=== PATIENT | female | born 1945 | race Asian ===

== ENCOUNTER 2017-12-08 22:12 | Observation (INO) | payer OTHER ==
[2017-12-08 22:25] VITALS: BMI 30.1
[2017-12-08] MEDS ORDERED: ASPIRIN 81 MG CHEWABLE TABLETS PO ONE (22:27)
[2017-12-08] MEDS ORDERED: MAG HYDROX/AL HYDROX/SIMETH 30 ML UNIT-DOSE CUP PO ONE (22:36)
[2017-12-08] MEDS ORDERED: ASPIRIN 81 MG CHEWABLE TABLETS ONE (22:53)
[2017-12-08] MEDS ORDERED: MAG HYDROX/AL HYDROX/SIMETH 30 ML UNIT-DOSE CUP ONE (22:53)
[2017-12-08 23:10] LABS: BASO % 0.6 % (0-2.0); EOS % 3.7 % (0-4.5); HEMOGLOBIN 11.6 GM/dL (10.7-15.3); LYMPH % 16.9 % (8-40); MCH 28.4 pg (25.7-33.7); MCHC 33.3 g/dl (32.0-36.0); MEAN CELL VOLUME 85.4 fl (80-96); MEAN PLT VOLUME 8.5 fl (7.5-11.1); MONO % 5.8 % (3.8-10.2); PLATELET COUNT 175 K/MM3 (134-434); RBC 4.09 M/mm3 (3.60-5.2); RDW 13.4 % (11.6-15.6)
[2017-12-08 23:14] LABS: INR 0.93 (0.82-1.09); PROTHROMBIN TIME (PATIENT) 10.5 SEC (9.98-11.88)
--- NOTE | 2017-12-08 23:38 | PDOC ---
History of Present Illness - General History Source: Patient, Family Exam Limitations: No Limitations <Lynda Tse - Last Filed: 12/09/17 00:24> <Cindy Garcias - Last Filed: 12/09/17 02:22> - General Chief Complaint: Chest Pain Stated Complaint: CHEST PAIN Time Seen by Provider: 12/08/17 22:25 - History of Present Illness Initial Comments: 12/08/17 23:39 The patient is a 72 year old female with a significant past medical history of HTN, HLD, DM and renal failure who presents to the ED with chest discomfort and lightheadedness since earlier today. The patient reports a gradual onset of generalized abdominal discomfort around 6:30 pm earlier today. She states her abdominal discomfort progressively developed into midsternal chest discomfort. She describes her chest discomfort as a burning like sensation. Patient reports taking pepcid for her chest discomfort with relief of symptoms. Patient also reports an episode of constipation around 9:00 pm tonight. She states she was straining on the toilet when she had a sudden onset of lightheadedness and a near-syncopal episode. Denies fall or injury. As per daughter, the patients blood sugar was 347 after her near-syncopal episode. Denies fever or chills. Denies shortness of breath or coughing. Denies nausea, vomiting, or diarrhea. Denies any other symptoms. PCP: Dr. Mcarthur Wallpaper Printer: Dr. Diana Monahan (Lynda Tse) Past History <Lynda Tse - Last Filed: 12/09/17 00:24> - Past Medical History COPD: No GI Disorders: Yes HTN: Yes Hypercholesterolemia: Yes - Suicide/Smoking/Psychosocial Hx Smoking History: Never smoked <Cindy Garcias - Last Filed: 12/09/17 02:22> - Past Medical History Allergies/Adverse Reactions: Allergies Allergy/AdvReac Type Severity Reaction Status Date / Time No Known Allergies Allergy Verified 12/08/17 22:24 Home Medications: Ambulatory Orders Aspirin 81 mg PO DAILY 12/08/17 Atorvastatin Ca [Lipitor] 10 mg PO HS 12/08/17 Calcium Carbonate/Vitamin D3 [Oyster Shell 500-Vit D3 200 Tb] 1 each PO DAILY Famotidine [Pepcid] 20 mg PO DAILY 12/08/17 Furosemide [Lasix] 20 mg PO DAILY 12/08/17 Glipizide [Glipizide ER] 5 mg PO DAILY 12/08/17 Insulin Glargine,Hum.rec.anlog [Lantus Solostar PEN (NF)] 25 units SQ HS Metformin HCl [Glucophage -] 500 mg PO DAILY 12/08/17 Metoprolol Succinate [Toprol Xl -] 50 mg PO DAILY 12/08/17 Telmisartan/Hydrochlorothiazid [Telmisartan-Hctz 80-25 mg Tab] 1 each PO DAILY 12/08/17 Review of Systems - Review of Systems Able to Perform ROS?: Yes All Other Systems: Reviewed and Negative <Lynda Tse - Last Filed: 12/09/17 00:24> <Cindy Garcias - Last Filed: 12/09/17 02:22> - Review of Systems Comments:: 12/08/17 23:40 CONSTITUTIONAL: Absent: fever, chills, diaphoresis, generalized weakness, malaise, loss of appetite HEENT: Absent: rhinorrhea, nasal congestion, throat pain, throat swelling, difficulty swallowing, mouth swelling, ear pain, eye pain, visual Changes CARDIOVASCULAR: + chest discomfort Absent: syncope, palpitations, irregular heart rate, lightheadedness, peripheral edema RESPIRATORY: Absent: cough, shortness of breath, dyspnea with exertion, orthopnea, wheezing, stridor, hemoptysis GASTROINTESTINAL: + abdominal discomfort, constipation Absent: abdominal distension, nausea, vomiting, diarrhea, melena, hematochezia GENITOURINARY: Absent: dysuria, frequency, urgency, hesitancy, hematuria, flank pain, genital pain MUSCULOSKELETAL: Absent: myalgia, arthralgia, joint swelling SKIN: Absent: rash, itching, pallor HEMATOLOGIC/IMMUNOLOGIC: Absent: easy bleeding, easy bruising, lymphadenopathy, frequent infections ENDOCRINE: Absent: unexplained weight gain, unexplained weight loss, heat intolerance, cold intolerance NEUROLOGIC: + lightheadedness, near syncope Absent: headache, focal weakness or paresthesias, unsteady gait, seizure, mental status changes, bladder or bowel incontinence PSYCHIATRIC: Absent: anxiety, depression, suicidal or homicidal ideation, hallucinations. (Lynda Tse) *Physical Exam <Lynda Tse - Last Filed: 12/09/17 00:24> <Cindy Garcias - Last Filed: 12/09/17 02:22> - Vital Signs Last Vital Signs Temp Pulse Resp BP Pulse Ox 98 F 65 22 101/62 100 12/08/17 22:24 12/08/17 23:01 12/08/17 23:01 12/08/17 23:01 12/08/17 23:01 - Physical Exam Comments: 12/08/17 23:40 GENERAL: Well developed, well nourished. Awake and alert. No acute distress. HEENT: Normocephalic, atraumatic. PERRLA, EOMI. No conjunctival pallor. Sclera are non- icteric. Moist mucous membranes. Oropharynx is clear. NECK: Supple. Full ROM. No JVD. Carotid pulses 2+ and symmetric, without bruits. No thyromegaly. NCo lymphadenopathy. CARDIOVASCULAR: Regular rate and rhythm. No murmurs, rubs, or gallops. Distal pulses are 2+ and symmetric. PULMONARY: No evidence of respiratory distress. Lungs clear to auscultation bilaterally. No wheezing, rales or rhonchi. ABDOMINAL:+ purulent abdomen Soft. Non-tender.No rebound or guarding. No organomegaly. Normoactive bowel sounds. MUSCULOSKELETAL Normal range of motion at all joints. No bony deformities or tenderness. No CVA tenderness. EXTREMITIES: No cyanosis. No clubbing. No edema. No calf tenderness. SKIN: Warm and dry. Normal capillary refill. No rashes. No jaundice. NEUROLOGICAL: Alert, awake, appropriate. Cranial nerves 2-12 intact. No deficits to light touch and temperature in face, upper extremities and lower extremities. No motor deficits in the in face, upper extremities and lower extremities. Normoreflexic in the upper and lower extremities. Normal speech. Toes are down- going bilaterally. Gait is normal without ataxia. PSYCHIATRIC: Cooperative. Good eye contact. Appropriate mood and affect. (Lynda Tse) Heart Score/ECG Review <Lynda Tse - Last Filed: 12/09/17 00:24> <Cindy Garcias - Last Filed: 12/09/17 02:22> #1 12/09/17 00:03 Normal sinus rhythm at [address] abnormalities Reported by: Dr. Garcias (Lynda Tse) #2 12/09/17 00:03 Normal sinus rhythm at [address] abnormalities Reported by: Dr. Garcias (Lynda Tse) ED Treatment Course - LABORATORY CBC & Chemistry Diagram: 12/08/17 22:50 12/08/17 22:50 <Lynda Tse - Last Filed: 12/09/17 00:24> - LABORATORY CBC & Chemistry Diagram: 12/08/17 22:50 12/08/17 23:31 <Cindy Garcias - Last Filed: 12/09/17 02:22> - ADDITIONAL ORDERS Additional order review: Laboratory Results 12/08/17 12/08/17 12/08/17 23:31 23:31 22:50 PT with INR INR Sodium 134 L Potassium 4.0 Chloride 92 L Carbon Dioxide 32 Anion Gap 10 BUN 35 H Creatinine 1.7 H Creat Clearance w eGFR 29.38 Random Glucose 304 H* Calcium 9.3 Magnesium Total Bilirubin 0.8 AST 13 L ALT 21 Alkaline Phosphatase 100 Creatine Kinase 73 Troponin I < 0.02 B-Natriuretic Peptide Cancelled Total Protein 7.2 Albumin 3.4 12/08/17 12/08/17 22:50 22:50 PT with INR 10.50 INR 0.93 Sodium Cancelled Potassium Cancelled Chloride Cancelled Carbon Dioxide Cancelled Anion Gap Cancelled BUN Cancelled Creatinine Cancelled Creat Clearance w eGFR Cancelled Random Glucose Cancelled Calcium Cancelled Magnesium Cancelled Total Bilirubin Cancelled AST Cancelled ALT Cancelled Alkaline Phosphatase Cancelled Creatine Kinase Cancelled Troponin I Cancelled B-Natriuretic Peptide Total Protein Cancelled Albumin Cancelled 12/08/17 22:50 RBC 4.09 MCV 85.4 MCHC 33.3 RDW 13.4 MPV 8.5 Neutrophils % 73.0 Lymphocytes % 16.9 Monocytes % 5.8 Eosinophils % 3.7 Basophils % 0.6 - RADIOLOGY Radiology Studies Ordered: Category Date Time Status CHEST X-RAY PORTABLE* [RAD] Stat Radiology 12/08/17 22:28 Taken - Medications Given in the ED: ED Medications Discontinued Medications Generic Name Dose Route Start Last Admin Trade Name Freq PRN Reason Stop Dose Admin Al Hydroxide/Mg Hydroxide 30 ml 12/08/17 22:36 12/08/17 22:57 Mylanta Oral Suspension - PO 12/08/17 22:37 30 ml ONCE ONE Administration Aspirin 162 mg 12/08/17 22:27 12/08/17 22:57 Asa - PO 12/08/17 22:28 162 mg ONCE ONE Administration *DC/Admit/Observation/Transfer <Lynda Tse - Last Filed: 12/09/17 00:24> - Discharge Dispostion Admit: Yes <Cindy Garcias - Last Filed: 12/09/17 02:22> Diagnosis at time of Disposition: Insulin dependent diabetes mellitus Chest pain Qualifiers: Chest pain type: unspecified Qualified Code(s): R07.9 - Chest pain, unspecified Chronic renal disease Qualifiers: Chronic kidney disease stage: unspecified stage Qualified Code(s): N18.9 - Chronic kidney disease, unspecified - Referrals Referrals: Abhishek Mcarthur MD [Primary Care Provider] - - Patient Instructions - Post Discharge Activity - Attestations Scribe Attestion: 12/08/17 23:40 Documentation prepared by Lynda Tse, acting as medical billing supervisor for Cindy Garcias MD (Lynda Tse)
[2017-12-09 01:08] LABS: ALBUMIN 3.4 g/dl (3.4-5.0); ANION GAP 10 (8-16); BLOOD UREA NITROGEN 35 mg/dL (7-18); CALCIUM 9.3 mg/dL (8.5-10.1); CHLORIDE 92 mmol/L (98-107); CO2 32 mmol/L (21-32); CREATININE 1.7 mg/dL (0.55-1.02); SGOT/AST 13 U/L (15-37); SGPT/ALT 21 U/L (12-78); SODIUM 134 mmol/L (136-145)
[2017-12-09 01:10] LABS: ALK PHOS 100 U/L (45-117); BILIRUBIN,TOTAL 0.8 mg/dL (0.2-1.0); TOT PROT 7.2 g/dl (6.4-8.2)
[2017-12-09 01:11] LABS: GLUCOSE,RANDOM 304 mg/dL (74-106)
--- NOTE | 2017-12-09 02:15 | PN ---
Teaching Attending Note Name of Resident: Carlton Dupont ATTENDING PHYSICIAN STATEMENT I saw and evaluated the patient. I reviewed the resident's note and discussed the case with the resident. I agree with the resident's findings and plan as documented. SUBJECTIVE: 72 F with pmhx. of HTN, HLD, DM and CKD who presents with chest discomfort preceded by abdominal pain. Abdominal Pain with burning sensation was fel, for which she took pepcid, but pain radiated to chest. Pt. also had strenous straining due to constipation, which made her feel lightheaded. OBJECTIVE: Physical: VS: Vital Signs Period Temp Pulse Resp BP Sys/Medina Pulse Ox Last 24 Hr 98 F 65-74 16-22 101-146/62-76 98-100 GEN: NAD, Resting in bed, AA0x3 HEENT: NCAT, PERRL, throat without erythema or exudates CARD: RRR S1, S2 RESP: CTAB ABD: BSx4, NTD to palpation EXT: - C/C/E CBCD WBC 7.0 K/mm3 (4.0-10.0) 12/08/17 22:50 RBC 4.09 M/mm3 (3.60-5.2) 12/08/17 22:50 Hgb 11.6 GM/dL (10.7-15.3) 12/08/17 22:50 Hct 35.0 % (32.4-45.2) 12/08/17 22:50 MCV 85.4 fl (80-96) 12/08/17 22:50 MCHC 33.3 g/dl (32.0-36.0) 12/08/17 22:50 RDW 13.4 % (11.6-15.6) 12/08/17 22:50 Plt Count 175 K/MM3 (134-434) 12/08/17 22:50 MPV 8.5 fl (7.5-11.1) 12/08/17 22:50 CMP Sodium 134 mmol/L (136-145) L 12/08/17 23:31 Potassium 4.0 mmol/L (3.5-5.1) 12/08/17 23:31 Chloride 92 mmol/L (98-107) L 12/08/17 23:31 Carbon Dioxide 32 mmol/L (21-32) 12/08/17 23:31 Anion Gap 10 (8-16) 12/08/17 23:31 BUN 35 mg/dL (7-18) H 12/08/17 23:31 Creatinine 1.7 mg/dL (0.55-1.02) H 12/08/17 23:31 Creat Clearance w eGFR 29.38 (>60) 12/08/17 23:31 Random Glucose 304 mg/dL (74-106) H* 12/08/17 23:31 Calcium 9.3 mg/dL (8.5-10.1) 12/08/17 23:31 Total Bilirubin 0.8 mg/dL (0.2-1.0) 12/08/17 23:31 AST 13 U/L (15-37) L 12/08/17 23:31 ALT 21 U/L (12-78) 12/08/17 23:31 Alkaline Phosphatase 100 U/L (45-117) 12/08/17 23:31 Total Protein 7.2 g/dl (6.4-8.2) 12/08/17 23:31 Albumin 3.4 g/dl (3.4-5.0) 12/08/17 23:31 CARDIAC ENZYMES Creatine Kinase 73 IU/L (26-192) 12/08/17 23:31 Troponin I < 0.02 ng/ml (0.00-0.05) 12/08/17 23:31 Home Medications Medication Instructions Recorded Aspirin 81 mg PO DAILY 12/08/17 Atorvastatin Ca [Lipitor] 10 mg PO HS 12/08/17 Calcium Carbonate/Vitamin D3 1 each PO DAILY 12/08/17 [Oyster Shell 500-Vit D3 200 Tb] Famotidine [Pepcid] 20 mg PO DAILY 12/08/17 Furosemide [Lasix] 20 mg PO DAILY 12/08/17 Glipizide [Glipizide ER] 5 mg PO DAILY 12/08/17 Insulin Glargine,Hum.rec.anlog 25 units SQ HS 12/08/17 [Lantus Solostar PEN (NF)] Metformin HCl [Glucophage -] 500 mg PO DAILY 12/08/17 Metoprolol Succinate [Toprol Xl -] 50 mg PO DAILY 12/08/17 Telmisartan/Hydrochlorothiazid 1 each PO DAILY 12/08/17 [Telmisartan-Hctz 80-25 mg Tab] CXR- No acut Process EKG: NSR HEART SCORE: 5 ASSESSMENT AND PLAN: 72 F with pmhx. of HTN, HLD, DM and CKD who presents with chest discomfort preceded by abdominal pain, being admitted for Atypical chest pain 1.) Atypical Chest Pain - Most likely due to reflux - ASA, 02 - Trend trop/ekg - Morphine/Nitro if chest pain reoccurs - Lipid Panel/A1c - C/W Statin 2.) Reflux - Pepcid 3.) DM- II - Hold Metformin - FS - RAISS - Diabetic diet - Lantus 25 U HS 4.) IRINA? CKD? - Base Cr Unknown - Would hold Metformin until seen by PCP, with re eval of CR 5.) HLD - C/W Statin 6.) Dvt Ppx - SCDs Place in Obs-Tele
--- NOTE | 2017-12-09 03:51 | HP ---
CHIEF COMPLAINT: Chest Pain PCP: Rachael Mcarthur: Diana Iglesias HISTORY OF PRESENT ILLNESS: Pt is a 72 y/o F with PMH TN, HLD, DM, CKD who presents to ED after having had CP and near-syncope at home. Pt does not speak Estonian, but is accompanied by daughter who is an [employer]CR[employer] and was able to translate. Per daughter, at 6:30 PM, pt developed burning epigastric pain which migrated to the substernal region. Pain was constant and intense, but non-radiating. Pt did not have symptoms in her neck or arms. Later in the evening, pt had a BM and had an episode of lightheadedness. At that time, BP was 147/107 and BGM was 325 (per daughter, nl is <120). Last BM before that was normal and was yesterday. Daughter states pt had an echo with Dr. Mcarthur in January and had a normal EF. Note that daughter describes the pt as having "clinical symptoms of CHF" over the last few months including pedal edema and THAKKAR. ER course was notable for: (1) Labs significant for Farm [employer] 1.7 (nl for pt), glucose 304, Trop neg (2) CXR: enlarged cardiac silhouette, elevated right hemidiaphragm (3) Recent Travel: from [place] several years ago PAST MEDICAL HISTORY: HTN, HLD, DM x 20yrs, CKD (nl GFR 30, nl [employer] 1.7) PAST SURGICAL HISTORY: Social History: Smoking: denies Alcohol: denies Drugs: denies Family History: denies Allergies No Known Allergies Allergy (Verified 12/08/17 22:24) HOME MEDICATIONS: Home Medications Medication Instructions Recorded Aspirin 81 mg PO DAILY 12/08/17 Atorvastatin Ca [Lipitor] 10 mg PO HS 12/08/17 Calcium Carbonate/Vitamin D3 1 each PO DAILY 12/08/17 [Oyster Shell 500-Vit D3 200 Tb] Famotidine [Pepcid] 20 mg PO DAILY 12/08/17 Furosemide [Lasix] 20 mg PO DAILY 12/08/17 Glipizide [Glipizide ER] 5 mg PO DAILY 12/08/17 Insulin Glargine,Hum.rec.anlog 25 units SQ HS 12/08/17 [Lantus Solostar PEN (NF)] Metformin HCl [Glucophage -] 500 mg PO DAILY 12/08/17 Metoprolol Succinate [Toprol Xl -] 50 mg PO DAILY 12/08/17 Telmisartan/Hydrochlorothiazid 1 each PO DAILY 12/08/17 [Telmisartan-Hctz 80-25 mg Tab] REVIEW OF SYSTEMS CONSTITUTIONAL: Absent: fever, chills, diaphoresis, generalized weakness, malaise, loss of appetite, weight change HEENT: Absent: rhinorrhea, nasal congestion, throat pain, throat swelling, difficulty swallowing, mouth swelling, ear pain, eye pain, visual changes CARDIOVASCULAR: chest pain, near-syncope, lightheadedness Absent: , palpitations, irregular heart rate, , peripheral edema RESPIRATORY: shortness of breath, dyspnea with exertion Absent: cough, , , orthopnea, wheezing, stridor, hemoptysis GASTROINTESTINAL:constipation Absent: abdominal pain, abdominal distension, nausea, vomiting, diarrhea, , melena, hematochezia GENITOURINARY: Absent: dysuria, frequency, urgency, hesitancy, hematuria, flank pain, genital pain MUSCULOSKELETAL: Absent: myalgia, arthralgia, joint swelling, back pain, neck pain SKIN: Absent: rash, itching, pallor HEMATOLOGIC/IMMUNOLOGIC: Absent: easy bleeding, easy bruising, lymphadenopathy, frequent infections ENDOCRINE: Absent: unexplained weight gain, unexplained weight loss, heat intolerance, cold intolerance NEUROLOGIC: Absent: headache, focal weakness or paresthesias, dizziness, unsteady gait, seizure, mental status changes, bladder or bowel incontinence PSYCHIATRIC: Absent: anxiety, depression, suicidal or homicidal ideation, hallucinations. PHYSICAL EXAMINATION Vital Signs - 24 hr 12/08/17 12/08/17 22:24 23:01 Temperature 98 F Pulse Rate 74 Pulse Rate [ 65 Apical] Respiratory 16 22 Rate Blood Pressure 146/76 Blood Pressure 101/62 [Right Arm] O2 Sat by Pulse 98 100 Oximetry (%) GENERAL: Awake, alert, and fully oriented, in no acute distress. HEAD: Normal with no signs of trauma. EYES: Pupils equal, round and reactive to light, extraocular movements intact, sclera anicteric, conjunctiva clear. No lid lag. EARS, NOSE, THROAT: oropharynx clear without exudates. Moist mucous membranes. NECK: Normal range of motion, supple without lymphadenopathy, JVD, or masses. No carotid bruits LUNGS: Breath sounds equal, clear to auscultation bilaterally. No wheezes, and no crackles. No accessory muscle use. HEART: Regular rate and rhythm, normal S1 and S2 without murmur, rub or gallop. ABDOMEN: Soft, nontender, not distended, normoactive bowel sounds, no guarding, no rebound, no masses. No hepatomegaly or splenomegaly. MUSCULOSKELETAL: Normal range of motion at all joints. No bony deformities or tenderness. No CVA tenderness. UPPER EXTREMITIES: 2+ pulses, warm, well-perfused. No cyanosis. No clubbing. No peripheral edema. LOWER EXTREMITIES: 2+ pulses, warm, well-perfused. No calf tenderness. trace peripheral edema. NEUROLOGICAL: Normal speech. PSYCHIATRIC: Cooperative. Good eye contact. Appropriate mood and affect. SKIN: Warm, dry, normal turgor, no rashes or lesions noted, normal capillary refill. Laboratory Results - last 24 hr 12/08/17 12/08/17 12/08/17 22:50 22:50 22:50 WBC 7.0 RBC 4.09 Hgb 11.6 Hct 35.0 MCV 85.4 MCH 28.4 MCHC 33.3 RDW 13.4 Plt Count 175 MPV 8.5 Neutrophils % 73.0 Lymphocytes % 16.9 Monocytes % 5.8 Eosinophils % 3.7 Basophils % 0.6 PT with INR 10.50 INR 0.93 Sodium Cancelled Potassium Cancelled Chloride Cancelled Carbon Dioxide Cancelled Anion Gap Cancelled BUN Cancelled Creatinine Cancelled Creat Clearance w eGFR Cancelled Random Glucose Cancelled Calcium Cancelled Magnesium Cancelled Total Bilirubin Cancelled AST Cancelled ALT Cancelled Alkaline Phosphatase Cancelled Creatine Kinase Cancelled Troponin I Cancelled B-Natriuretic Peptide Total Protein Cancelled Albumin Cancelled 12/08/17 12/08/17 12/08/17 22:50 23:31 23:31 WBC RBC Hgb Hct MCV MCH MCHC RDW Plt Count MPV Neutrophils % Lymphocytes % Monocytes % Eosinophils % Basophils % PT with INR INR Sodium 134 L Potassium 4.0 Chloride 92 L Carbon Dioxide 32 Anion Gap 10 BUN 35 H Creatinine 1.7 H Creat Clearance w eGFR 29.38 Random Glucose 304 H* Calcium 9.3 Magnesium Total Bilirubin 0.8 AST 13 L ALT 21 Alkaline Phosphatase 100 Creatine Kinase 73 Troponin I < 0.02 B-Natriuretic Peptide Cancelled Total Protein 7.2 Albumin 3.4 ASSESSMENT/PLAN: Pt is a 72 y/o lady with PMH HTN, HLD, DM, CKD who presents to ED with CP. #r/o ACS -CP was burning and migrated up from epigastrium -HEART SCORE 4 -Tele/Obs -Cardio consult -Echo -Trop -EKG -ASA #DM -BGM -Levemir Ins 25 -Glucophage #HTN -Toprol -Telmisartan/HCTZ #HLD -c/w lipitor #CHF -Lasix #GERD -Zantac #FEN -not on fluids -lytes wnl -DM, HTN diet #PPx -Hep SubQ #Dispo -Tele/Obs Carlton Dupont MD PGY-1 IM Visit type - Emergency Visit Emergency Visit: Yes ED Registration Date: 12/09/17 Care time: The patient presented to the Emergency Department on the above date and was hospitalized for further evaluation of their emergent condition. - New Patient This patient is new to me today: Yes Date on this admission: 12/09/17 - Critical Care Critical Care patient: No
[2017-12-09] MEDS ORDERED: HEPARIN NA (PORCINE) 5,000 UNITS/ML 1ML VIAL SQ SCH (06:00)
[2017-12-09] MEDS ORDERED: glipiZIDE 5 MG TABLET (FP) ONE ×2 (06:12→07:57)
[2017-12-09] MEDS ORDERED: metFORMIN HCL 500 MG TABLET (FP) ONE ×2 (06:13→07:57)
[2017-12-09] MEDS ORDERED: HEPARIN NA (PORCINE) 5,000 UNITS/ML 1ML VIAL ONE (06:13)
[2017-12-09] MEDS ORDERED: glipiZIDE-XL 5 MG TAB.ER.24 PO SCH (07:00)
[2017-12-09] MEDS ORDERED: metFORMIN HCL 500 MG TABLET (FP) PO SCH (07:00)
[2017-12-09] MEDS ORDERED: INSULIN SLIDING SCALE (NOVOLOG) 1 VIAL SQ SCH ×2 (07:00→11:00)
[2017-12-09] MEDS ORDERED: INSULIN (NOVOLOG MIX 70/30) 100 UNITS/ML MDV SQ ONE (08:05)
--- NOTE | 2017-12-09 08:48 | EKG ---
Test Reason : Blood Pressure : / mmHG Vent. Rate : 070 BPM Atrial Rate : 070 BPM P-R Int : 168 ms QRS Dur : 086 ms QT Int : 380 ms P-R-T Axes : 067 072 080 degrees QTc Int : 410 ms NORMAL SINUS RHYTHM NONSPECIFIC ST ABNORMALITY ABNORMAL ECG NO PREVIOUS ECGS AVAILABLE Confirmed by Iron Farias ([id number]) on 12/09/2017 8:47:39 AM Referred By: Confirmed By:Iron Farias
[2017-12-09] MEDS ORDERED: SODIUM CHLORIDE 0.45% 1,000 ML with POTASSIUM CHLORIDE 40 MEQ IVPB SCH (09:00)
[2017-12-09] MEDS ORDERED: SODIUM CHLORIDE 1,000 ML IV SCH (09:00)
[2017-12-09] MEDS ORDERED: VALSARTAN 160 MG TABLET (UD) PO SCH (10:00)
[2017-12-09] MEDS ORDERED: FUROSEMIDE 20 MG TABLET (FP) PO SCH (10:00)
[2017-12-09] MEDS ORDERED: ASPIRIN 81 MG CHEWABLE TABLETS PO SCH (10:00)
[2017-12-09] MEDS ORDERED: RANITIDINE HCL 150 MG TABLET (FP) PO SCH (10:00)
[2017-12-09] MEDS ORDERED: CALCIUM 500MG/VIT-D 200 UNITS COMBO TABLET (FP) PO SCH (10:00)
[2017-12-09] MEDS ORDERED: HYDROCHLOROTHIAZIDE 25 MG TABLET (FP) PO SCH (10:00)
[2017-12-09] MEDS ORDERED: amLODIPine BESYLATE 5 MG TABLET (FP) PO SCH (10:00)
[2017-12-09] MEDS ORDERED: PATIENT'S OWN MEDICATION (NON-FORMULARY) (Telmisartan/Hydrochlorothiazid [Telmisartan-Hctz PO SCH (10:00)
[2017-12-09] MEDS ORDERED: METOPROLOL SUCCINATE 50 MG TAB.SR.24H (FP) PO SCH (10:00)
[2017-12-09 11:45] LABS: URINE APPEARANCE CLEAR; URINE BILIRUBIN NEGATIVE (NEGATIVE); URINE BLOOD NEGATIVE (NEGATIVE); URINE COLOR STRAW; URINE GLUCOSE (UA) NEGATIVE (NEGATIVE); URINE KETONE NEGATIVE (NEGATIVE); URINE LEUK ESTERASE 2+ (NEGATIVE); URINE NITRITE NEGATIVE (NEGATIVE); URINE PROTEIN NEGATIVE (NEGATIVE); URINE UROBILINOGEN NEGATIVE mg/dL (0.2-1.0)
[2017-12-09 11:46] LABS: URINE CREATININE 36.1 mg/dL (20-320)
--- NOTE | 2017-12-09 11:48 | CON.CARD ---
Consult Consult Specialty:: Cardiology Referred by:: Hospitalist Medicine Reason for Consultation:: Chest pain - History of Present Illness Chief Complaint: Chest pain History of Present Illness: Pt is a 72 y/o F with PMH [place], HLD, DM, CKD who presents to ED after having had CP and near-syncope at home. Pt does not speak Portuguese, but is accompanied by daughter who is an TERMITE TREATER and was able to translate. Per daughter, at 6:30 PM, pt developed burning epigastric pain which migrated to the substernal region. Pain was constant and intense, but non-radiating. Later in the evening, pt had a BM and had an episode of lightheadedness. At that time, BP was 147/107 and BGM was 325 (per daughter, nl is <120). Daughter states pt had an echo with Dr. Mcarthur in January and had a normal EF. Note that daughter describes the pt as having "clinical symptoms of CHF" over the last few months including pedal edema and THAKKAR. ER course was notable for: (1) Labs significant for [employer] 1.7 (nl for pt), glucose 304, Trop neg (2) CXR: enlarged cardiac silhouette, elevated right hemidiaphragm - History Source History Provided By: Family Member Limitations to Obtaining History: Poor Historian - Smoking History Smoking history: Never smoked Home Medications - Allergies Allergies/Adverse Reactions: Allergies Allergy/AdvReac Type Severity Reaction Status Date / Time No Known Allergies Allergy Verified 12/08/17 22:24 - Home Medications Home Medications: Ambulatory Orders Aspirin 81 mg PO DAILY 12/08/17 Atorvastatin Ca [Lipitor] 10 mg PO HS 12/08/17 Calcium Carbonate/Vitamin D3 [Oyster Shell 500-Vit D3 200 Tb] 1 each PO DAILY Famotidine [Pepcid] 20 mg PO DAILY 12/08/17 Furosemide [Lasix] 20 mg PO DAILY 12/08/17 Glipizide [Glipizide ER] 5 mg PO DAILY 12/08/17 Insulin Glargine,Hum.rec.anlog [Lantus Solostar PEN (NF)] 25 units SQ HS Metoprolol Succinate [Toprol Xl -] 50 mg PO DAILY 12/08/17 Amlodipine Besylate [Norvasc -] 5 mg PO DAILY #30 tablet 12/09/17 Valsartan [Diovan] 80 mg PO DAILY #14 tablet 12/09/17 Review of Systems - Review of Systems Cardiovascular: reports: Chest Pain Neurological: reports: Dizziness Vital Signs: Vital Signs Temperature 98.4 F 12/09/17 10:23 Pulse Rate 64 12/09/17 10:23 Respiratory Rate 16 12/09/17 10:23 Blood Pressure 154/102 12/09/17 10:23 O2 Sat by Pulse Oximetry (%) 98 12/09/17 10:23 Constitutional: Yes: No Distress, Calm Neck: Yes: Supple Respiratory: Yes: Regular, CTA Bilaterally Gastrointestinal: Yes: Normal Bowel Sounds, Soft, Abdomen, Obese Cardiovascular: Yes: Regular Rate and Rhythm JVD: No Carotid Bruit: No Heart Sounds: Yes: S1, S2 Edema: No - Other Data Labs, Other Data: CBC, BMP 12/08/17 22:50 12/08/17 23:31 INR, PTT INR 0.93 (0.82-1.09) 12/08/17 22:50 Troponin, BNP 12/08/17 12/08/17 12/08/17 22:50 22:50 23:31 Troponin I Cancelled < 0.02 B-Natriuretic Peptide Cancelled 12/09/17 08:04 Troponin I < 0.02 B-Natriuretic Peptide Troponin, BNP 12/08/17 12/08/17 12/08/17 22:50 22:50 23:31 Troponin I Cancelled < 0.02 B-Natriuretic Peptide Cancelled 12/09/17 08:04 Troponin I < 0.02 B-Natriuretic Peptide NSR @ [address] changes Imaging - Results Chest X-ray: Report Reviewed (NAD) Problem List - Problems (1) Hyperlipidemia associated with type 2 diabetes mellitus Code(s): E11.69 - TYPE 2 DIABETES MELLITUS WITH OTHER SPECIFIED COMPLICATION; E78.5 - HYPERLIPIDEMIA, UNSPECIFIED (2) Diastolic dysfunction Code(s): I51.9 - HEART DISEASE, UNSPECIFIED (3) Hypertensive cardiomyopathy Code(s): I11.9 - HYPERTENSIVE HEART DISEASE WITHOUT HEART FAILURE; I43 - CARDIOMYOPATHY IN DISEASES CLASSIFIED ELSEWHERE Qualifiers: Heart failure presence: without heart failure Qualified Code(s): I11.9 - Hypertensive heart disease without heart failure; I43 - Cardiomyopathy in diseases classified elsewhere; I43 - Cardiomyopathy in diseases classified elsewhere; I43 - Cardiomyopathy in diseases classified elsewhere; I43 - Cardiomyopathy in diseases classified elsewhere (4) Chest pain Code(s): R07.9 - CHEST PAIN, UNSPECIFIED Qualifiers: Chest pain type: unspecified Qualified Code(s): R07.9 - Chest pain, unspecified (5) Chronic renal disease Code(s): N18.9 - CHRONIC KIDNEY DISEASE, UNSPECIFIED Qualifiers: Chronic kidney disease stage: stage 3 (moderate) Qualified Code(s): N18.3 - Chronic kidney disease, stage 3 (moderate) (6) Insulin dependent diabetes mellitus Code(s): E11.9 - TYPE 2 DIABETES MELLITUS WITHOUT COMPLICATIONS; Z79.4 - AGER TENDER (CURRENT) USE OF INSULIN Assessment/Plan 1. Chest pain syndrome 2. Type 2 DM 3. HTN/HCVD 4. Hyperlipidemia 5. Diastolic dysfunction 6. CKD P: 1. Ruling out for NH 2. Continue ASA 81 qd, Lipitor 10 qhs, Lasix 20 qd, Toprol XL 50 qd, Telmisartan -HCTZ 80/25 qd 3. March d/c from CV-standpoint with f/u in office [phone] for further work- up 4. F/u echo results 5. Thank you for consultative opportunity
[2017-12-09 11:49] LABS: EPI CELLS RARE /HPF (FEW); URINE BACTERIA RARE /hpf (NONE SEEN); URINE MUCUS RARE
[2017-12-09 12:07] VITALS: TEMP 98.2
[2017-12-09 12:10] VITALS: PULSE 64
[2017-12-09 13:25] VITALS: BP 129/59
--- NOTE | 2017-12-09 15:09 | EKG ---
Test Reason : Blood Pressure : / mmHG Vent. Rate : 064 BPM Atrial Rate : 064 BPM P-R Int : 176 ms QRS Dur : 092 ms QT Int : 400 ms P-R-T Axes : 072 066 081 degrees QTc Int : 412 ms NORMAL SINUS RHYTHM ST ELEVATION CONSIDER INFERIOR INJURY OR ACUTE INFARCT ACUTE NE / STEMI Consider right ventricular involvement in acute inferior infarct ABNORMAL ECG NO PREVIOUS ECGS AVAILABLE Confirmed by Iron Farias ([id number]) on 12/09/2017 3:09:07 PM Referred By: Confirmed By:Iron Farias
--- NOTE | 2017-12-09 16:46 | DS ---
Physical Exam: SUBJECTIVE: Patient seen and examined at bedside. Patient states that she has clinically improved and does not have any more epigastric pain, tenderness or burning. Denies current chest pain and shortness of breath. OBJECTIVE: Vital Signs Period Temp Pulse Resp BP Sys/[place] Pulse Ox Last 24 Hr 98 F-98.4 F 63-74 16-22 101-158/56-102 96-100 PHYSICAL EXAM GENERAL: The patient is awake, alert, and fully oriented, in no acute distress. HEAD: Normal with no signs of trauma. LUNGS: Breath sounds equal, clear to auscultation bilaterally, no wheezes, no crackles, no accessory muscle use. HEART: Regular rate and rhythm, S1, S2 without murmur, rub or gallop. ABDOMEN: Obese, nontender, nondistended, normoactive bowel sounds, no guarding, no rebound, no hepatosplenomegaly, no masses. EXTREMITIES: 2+ pulses, warm, well-perfused, no edema. LABS Laboratory Results - last 24 hr 12/08/17 12/08/17 12/08/17 22:50 22:50 22:50 WBC 7.0 RBC 4.09 Hgb 11.6 Hct 35.0 MCV 85.4 MCH 28.4 MCHC 33.3 RDW 13.4 Plt Count 175 MPV 8.5 Neutrophils % 73.0 Lymphocytes % 16.9 Monocytes % 5.8 Eosinophils % 3.7 Basophils % 0.6 PT with INR 10.50 INR 0.93 Sodium Cancelled Potassium Cancelled Chloride Cancelled Carbon Dioxide Cancelled Anion Gap Cancelled BUN Cancelled Creatinine Cancelled Creat Clearance w eGFR Cancelled POC Glucometer Random Glucose Cancelled Calcium Cancelled Magnesium Cancelled Total Bilirubin Cancelled AST Cancelled ALT Cancelled Alkaline Phosphatase Cancelled Creatine Kinase Cancelled Troponin I Cancelled B-Natriuretic Peptide Total Protein Cancelled Albumin Cancelled Urine Color Urine Appearance Urine pH Ur Specific [place] Urine Protein Urine Glucose (UA) Urine Ketones Urine Blood Urine Nitrite Urine Bilirubin Urine Urobilinogen Ur Leukocyte Esterase Urine WBC (Auto) Urine RBC (Auto) Ur Epithelial Cells Urine Bacteria Urine Mucus U Random Total Protein Ur Random Sodium Ur Random Potassium Ur Random Chloride Ur Random Urea Nitrogn Urine Creatinine 12/08/17 12/08/17 12/08/17 22:50 23:31 23:31 WBC RBC Hgb Hct MCV MCH MCHC RDW Plt Count MPV Neutrophils % Lymphocytes % Monocytes % Eosinophils % Basophils % PT with INR INR Sodium 134 L Potassium 4.0 Chloride 92 L Carbon Dioxide 32 Anion Gap 10 BUN 35 H Creatinine 1.7 H Creat Clearance w eGFR 29.38 POC Glucometer Random Glucose 304 H* Calcium 9.3 Magnesium Total Bilirubin 0.8 AST 13 L ALT 21 Alkaline Phosphatase 100 Creatine Kinase 73 Troponin I < 0.02 B-Natriuretic Peptide Cancelled Total Protein 7.2 Albumin 3.4 Urine Color Urine Appearance Urine pH Ur Specific [place] Urine Protein Urine Glucose (UA) Urine Ketones Urine Blood Urine Nitrite Urine Bilirubin Urine Urobilinogen Ur Leukocyte Esterase Urine WBC (Auto) Urine RBC (Auto) Ur Epithelial Cells Urine Bacteria Urine Mucus U Random Total Protein Ur Random Sodium Ur Random Potassium Ur Random Chloride Ur Random Urea Nitrogn Urine Creatinine 12/09/17 12/09/17 12/09/17 08:04 08:07 11:30 WBC RBC Hgb Hct MCV MCH MCHC RDW Plt Count MPV Neutrophils % Lymphocytes % Monocytes % Eosinophils % Basophils % PT with INR INR Sodium Potassium Chloride Carbon Dioxide Anion Gap BUN Creatinine Creat Clearance w eGFR POC Glucometer [phone] Random Glucose Calcium Magnesium Total Bilirubin AST ALT Alkaline Phosphatase Creatine Kinase Troponin I < 0.02 B-Natriuretic Peptide Total Protein Albumin Urine Color Straw Urine Appearance Clear Urine pH 7.0 Ur Specific [place] 1.009 Urine Protein Negative Urine Glucose (UA) Negative Urine Ketones Negative Urine Blood Negative Urine Nitrite Negative Urine Bilirubin Negative Urine Urobilinogen Negative Ur Leukocyte Esterase 2+ H Urine WBC (Auto) 8 Urine RBC (Auto) 1 Ur Epithelial Cells Rare Urine Bacteria Rare Urine Mucus Rare U Random Total Protein Ur Random Sodium Ur Random Potassium Ur Random Chloride Ur Random Urea Nitrogn Urine Creatinine 12/09/17 12/09/17 11:30 12:10 WBC RBC Hgb Hct MCV MCH MCHC RDW Plt Count MPV Neutrophils % Lymphocytes % Monocytes % Eosinophils % Basophils % PT with INR INR Sodium Potassium Chloride Carbon Dioxide Anion Gap BUN Creatinine Creat Clearance w eGFR POC Glucometer Random Glucose Calcium Magnesium Total Bilirubin AST ALT Alkaline Phosphatase Creatine Kinase 85 Troponin I < 0.02 B-Natriuretic Peptide Total Protein Albumin Urine Color Urine Appearance Urine pH Ur Specific [place] Urine Protein Urine Glucose (UA) Urine Ketones Urine Blood Urine Nitrite Urine Bilirubin Urine Urobilinogen Ur Leukocyte Esterase Urine WBC (Auto) Urine RBC (Auto) Ur Epithelial Cells Urine Bacteria Urine Mucus U Random Total Protein 21 H Ur Random Sodium 56 Ur Random Potassium 29.4 Ur Random Chloride 52 Ur Random Urea Nitrogn 360 Urine Creatinine 36.1 HOSPITAL COURSE: Date of Admission:12/09/17 72 year old female wit quevedo past medical history of HLD, DM, CKD oresented to the ED for 2 days of epigastric pain and burning as well as a near syncopal event after a bowel movement. Her daughter informed the team that patient has been having leg swelling. We were informed by the daughter that the patient's baseline creatinine is always around 1.7. Patient has been on HCTZ/telmisartan, toprol XL, and metformin for controlling her diabetes and hypertension. Troponins returned negative x3 and EKG showed normal sinus rhythm with some mild , non-specific ST changes. Patient was treated with Zantec for GERD and HCTZ was held and replaced with norvasc. Patient had an echocardiogram performed in the hospital. She felt clinically improved by the time we examined the patient and we discharged her with instructions to follow with her PCP and Dr. Au ( cardiology). Date of Discharge: 12/09/17 Minutes to complete discharge: 35 <Christiano Metzger - Last Filed: 12/09/17 16:41> Physical Exam: Patient seen and examined with the resident. Agree with the resident's plan, patient was suggested to loose weight and stay away from simple carbs. Patient is being discharged home. Will hold po metformin and Hctz since creatinine is 1.7 and sodium is in a low side. will just keep the patient on Arb since patient is diabetic and was suggested to follow up with her primary doctor. Vital Signs Temperature 98.2 F 12/09/17 12:06 Pulse Rate 64 12/09/17 13:25 Respiratory Rate 16 12/09/17 13:25 Blood Pressure 129/59 12/09/17 13:25 O2 Sat by Pulse Oximetry (%) 96 12/09/17 13:25 CBCD WBC 7.0 K/mm3 (4.0-10.0) 12/08/17 22:50 RBC 4.09 M/mm3 (3.60-5.2) 12/08/17 22:50 Hgb 11.6 GM/dL (10.7-15.3) 12/08/17 22:50 Hct 35.0 % (32.4-45.2) 12/08/17 22:50 MCV 85.4 fl (80-96) 12/08/17 22:50 MCHC 33.3 g/dl (32.0-36.0) 12/08/17 22:50 RDW 13.4 % (11.6-15.6) 12/08/17 22:50 Plt Count 175 K/MM3 (134-434) 12/08/17 22:50 MPV 8.5 fl (7.5-11.1) 12/08/17 22:50 CMP Sodium 134 mmol/L (136-145) L 12/08/17 23:31 Potassium 4.0 mmol/L (3.5-5.1) 12/08/17 23:31 Chloride 92 mmol/L (98-107) L 12/08/17 23:31 Carbon Dioxide 32 mmol/L (21-32) 12/08/17 23:31 Anion Gap 10 (8-16) 12/08/17 23:31 BUN 35 mg/dL (7-18) H 12/08/17 23:31 Creatinine 1.7 mg/dL (0.55-1.02) H 12/08/17 23:31 Creat Clearance w eGFR 29.38 (>60) 12/08/17 23:31 Random Glucose 304 mg/dL (74-106) H* 12/08/17 23:31 Calcium 9.3 mg/dL (8.5-10.1) 12/08/17 23:31 Total Bilirubin 0.8 mg/dL (0.2-1.0) 12/08/17 23:31 AST 13 U/L (15-37) L 12/08/17 23:31 ALT 21 U/L (12-78) 12/08/17 23:31 Alkaline Phosphatase 100 U/L (45-117) 12/08/17 23:31 Total Protein 7.2 g/dl (6.4-8.2) 12/08/17 23:31 Albumin 3.4 g/dl (3.4-5.0) 12/08/17 23:31 CARDIAC ENZYMES Creatine Kinase 85 IU/L (26-192) 12/09/17 12:10 Troponin I < 0.02 ng/ml (0.00-0.05) 12/09/17 12:10 Home Medications Medication Instructions Recorded Aspirin 81 mg PO DAILY 12/08/17 Atorvastatin Ca [Lipitor] 10 mg PO HS 12/08/17 Calcium Carbonate/Vitamin D3 1 each PO DAILY 12/08/17 [Oyster Shell 500-Vit D3 200 Tb] Famotidine [Pepcid] 20 mg PO DAILY 12/08/17 Furosemide [Lasix] 20 mg PO DAILY 12/08/17 Glipizide [Glipizide ER] 5 mg PO DAILY 12/08/17 Insulin Glargine,Hum.rec.anlog 25 units SQ HS 12/08/17 [Lantus Solostar PEN -] Metoprolol Succinate [Toprol XL -] 50 mg PO DAILY 12/08/17 Amlodipine Besylate [Norvasc -] 5 mg PO DAILY #30 tablet 12/09/17 Valsartan [Diovan] 80 mg PO DAILY #14 tablet 12/09/17 <Selina Jarrett - Last Filed: 12/09/17 19:24> Discharge Summary Reason For Visit: INSULIN DEPENDENT DIABETIC MELITUS,CHRONIC - Home Medications Comprehensive Discharge Medication List: Ambulatory Orders Aspirin 81 mg PO DAILY 12/08/17 Atorvastatin Ca [Lipitor] 10 mg PO HS 12/08/17 Calcium Carbonate/Vitamin D3 [Oyster Shell 500-Vit D3 200 Tb] 1 each PO DAILY Famotidine [Pepcid] 20 mg PO DAILY 12/08/17 Furosemide [Lasix] 20 mg PO DAILY 12/08/17 Glipizide [Glipizide ER] 5 mg PO DAILY 12/08/17 Insulin Glargine,Hum.rec.anlog [Lantus Solostar PEN -] 25 units SQ HS 12/08/17 Metoprolol Succinate [Toprol XL -] 50 mg PO DAILY 12/08/17 Amlodipine Besylate [Norvasc -] 5 mg PO DAILY #30 tablet 12/09/17 Valsartan [Diovan] 80 mg PO DAILY #14 tablet 12/09/17 <Christiano Metzger - Last Filed: 12/09/17 16:41> - Home Medications Comprehensive Discharge Medication List: Ambulatory Orders Aspirin 81 mg PO DAILY 12/08/17 Atorvastatin Ca [Lipitor] 10 mg PO HS 12/08/17 Calcium Carbonate/Vitamin D3 [Oyster Shell 500-Vit D3 200 Tb] 1 each PO DAILY Famotidine [Pepcid] 20 mg PO DAILY 12/08/17 Furosemide [Lasix] 20 mg PO DAILY 12/08/17 Glipizide [Glipizide ER] 5 mg PO DAILY 12/08/17 Insulin Glargine,Hum.rec.anlog [Lantus Solostar PEN -] 25 units SQ HS 12/08/17 Metoprolol Succinate [Toprol XL -] 50 mg PO DAILY 12/08/17 Amlodipine Besylate [Norvasc -] 5 mg PO DAILY #30 tablet 12/09/17 Valsartan [Diovan] 80 mg PO DAILY #14 tablet 12/09/17 <Selina Jarrett - Last Filed: 12/09/17 19:24> Condition: Stable - Instructions Diet, Activity, Other Instructions: You were treated in the hospital for atypical chest pain, epigastric pain, hyponatremia and elevated creatinine. Your clinical condition has improved since you came in to the hospital. Medical Recommendations: #Please make sure to adhere to your diabetic medications #Please adhere to a diabetic diet to avoid complications- it is important to lose weight in order to optimize your health #We are stopping your hydrochlorothiazide (HCTZ) because it can have a negative affect on your sodium (Low sodium can put you at risk of falls) #Please stop taking your metformin for now, as it has a negative effect on your kidneys #We are going to add a medication Norvasc 5mg ONCE a day for your blood pressure , please check your blood pressure every day and report the values to your primary care physician #Please see your primary care physician within 1 week of discharge #Please make an appointment with the cement breaker Dr. Shanna Young M.D. within 1 month of discharge, his office number will be given to you with your discharge packet If you experience severe chest pain, shortness of breath, nausea, vomiting, fevers or chills please return to the emergency room. Referrals: Abhishek Mcarthur MD [Primary Care Provider] - Hector Otero MD [Staff Physician] - Michael Barron MD [Staff Physician] - Disposition: HOME This patient is new to me today: Yes Date on this admission: 12/09/17 Emergency Visit: Yes ED Registration Date: 12/09/17 Care time: The patient presented to the Emergency Department on the above date and was hospitalized for further evaluation of their emergent condition. Critical Care patient: No - Discharge Referral Referred to [facility] No <Christiano Metzger - Last Filed: 12/09/17 16:41>
--- NOTE | 2017-12-09 21:44 | EKG ---
Test Reason : Blood Pressure : / mmHG Vent. Rate : 054 BPM Atrial Rate : 054 BPM P-R Int : 172 ms QRS Dur : 086 ms QT Int : 426 ms P-R-T Axes : 055 059 073 degrees QTc Int : 403 ms SINUS BRADYCARDIA OTHERWISE NORMAL ECG WHEN COMPARED WITH ECG OF 09-DEC-2017 03:32, NO SIGNIFICANT CHANGE WAS FOUND Confirmed by ANGELICA BARRIENTOS MD ([id number]) on 12/09/2017 9:43:43 PM Referred By: Confirmed By:ANGELICA BARRIENTOS MD
[2017-12-09] MEDS ORDERED: ATORVASTATIN CA 10 MG TABLET (FP) PO SCH (22:00)
[2017-12-09] MEDS ORDERED: INSULIN DETEMIR 100 UNITS/ML MDV SQ SCH ×2 (22:00)
--- NOTE | 2017-12-16 13:09 | EKG ---
Test Reason : Blood Pressure : / mmHG Vent. Rate : 056 BPM Atrial Rate : 056 BPM P-R Int : 176 ms QRS Dur : 086 ms QT Int : 424 ms P-R-T Axes : 059 056 071 degrees QTc Int : 409 ms SINUS BRADYCARDIA OTHERWISE NORMAL ECG WHEN COMPARED WITH ECG OF 08-DEC-2017 23:13, NO SIGNIFICANT CHANGE WAS FOUND Confirmed by ANGELICA BARRIENTOS MD ([id number]) on 12/16/2017 1:08:46 PM Referred By: Confirmed By:ANGELICA BARRIENTOS MD
== END 2017-12-09 12:20 | disposition home or self-care (01) ==
LOC: JER 22:12 → JERBED 12-09 02:22
PROVIDERS: ADMIT Internal Medicine; ATTEND Internal Medicine
PROC: 3E013GC Introduction of Other Therapeutic Substance into Subcutaneous Tissue, Percutaneous Approach (ICD-10-PCS; principal; 2017-12-09)
DX: R07.89 Other chest pain (principal); I12.9 Hypertensive chronic kidney disease with stage 1 through stage 4 chronic kidney disease, or unspecified chronic kidney disease; I11.9 Hypertensive heart disease without heart failure; I51.9 Heart disease, unspecified; I50.9 Heart failure, unspecified; I43 Cardiomyopathy in diseases classified elsewhere; E11.22 Type 2 diabetes mellitus with diabetic chronic kidney disease; E11.69 Type 2 diabetes mellitus with other specified complication; N18.9 Chronic kidney disease, unspecified; E78.5 Hyperlipidemia, unspecified; K21.9 Gastro-esophageal reflux disease without esophagitis; Z79.82 Long term (current) use of aspirin; Z79.84 Long term (current) use of oral hypoglycemic drugs; Z79.4 Long term (current) use of insulin
CPT/HCPCS: 36415; 71045-TC; 80053; 81003; 81015; 82436; 82550; 82570; 82962; 84133; 84156; 84300; 84484; 84540; 85025; 85610; 93005; 93010; 93306-TC; 96372; 99285-25; G0378; J1644

== ENCOUNTER 2020-01-13 06:08 | Day surgery (SDC) | payer OTHER ==
[~2020-01-13 06:08] MED LIST: ACETAMINOPHEN 325 MG TABLET (FP) PO PRN; BUPIVACAINE HCL/PF 0.75% 10 ML VIAL PNB ONE; BUPIVACAINE HCL/PF 0.75% 10 ML VIAL RB ONE; CHONDROITIN SU A/HYALUR SOD 1 KIT IO ONE; CYCLOPENTOLATE HCL 1% OPHTH SOLN 2 ML BOTTLE OP SCH; EPINEPHrine/PF 1 MG/1 ML (1:1,000) AMPULE SQ ONE; KETOROLAC TROMETHAMINE 0.5% EYE DROP 1 DROP DROPS OP SCH; LIDOCAINE HCL 1% PRESERVATIVE FREE - 30ML VIAL IO ONE; LIDOCAINE HCL/PF 2% SDV 5ML VIAL PNB ONE; OFLOXACIN 0.3% OPHTHALMIC SOLUTION 5 ML BOTTLE OP SCH; PHENYLEPHRINE 2.5% OPHTH SOLN 15 ML BOTTLE OP SCH; TROPICAMIDE 1% OPHTH SOLN 15 ML BOTTLE OP SCH
[2020-01-13] MEDS ORDERED: OFLOXACIN 0.3% OPHTHALMIC SOLUTION 5 ML BOTTLE ONE (06:30)
[2020-01-13] MEDS ORDERED: TROPICAMIDE 1% OPHTH SOLN 15 ML BOTTLE ONE (06:30)
[2020-01-13] MEDS ORDERED: PHENYLEPHRINE 2.5% OPHTH SOLN 15 ML BOTTLE ONE (06:30)
[2020-01-13] MEDS ORDERED: KETOROLAC TROMETHAMINE 0.5% EYE DROP 1 DROP DROPS ONE (06:30)
[2020-01-13] MEDS ORDERED: CYCLOPENTOLATE HCL 1% OPHTH SOLN 2 ML BOTTLE ONE (06:30)
[2020-01-13] MEDS ORDERED: TROPICAMIDE 1% OPHTH SOLN 15 ML BOTTLE OS ONE ×3 (06:45→06:55)
[2020-01-13] MEDS ORDERED: PHENYLEPHRINE 2.5% OPHTH SOLN 15 ML BOTTLE OS ONE ×3 (06:45→06:55)
[2020-01-13] MEDS ORDERED: CYCLOPENTOLATE HCL 1% OPHTH SOLN 2 ML BOTTLE OS ONE ×3 (06:45→06:55)
[2020-01-13] MEDS ORDERED: OFLOXACIN 0.3% OPHTHALMIC SOLUTION 5 ML BOTTLE OS ONE ×3 (06:45→06:55)
[2020-01-13] MEDS ORDERED: KETOROLAC TROMETHAMINE 0.5% EYE DROP 1 DROP DROPS OS ONE ×3 (06:45→06:55)
[2020-01-13] MEDS ORDERED: CHONDROITIN SU A/HYALUR SOD 1 KIT ONE (07:03)
[2020-01-13] MEDS ORDERED: VANCOMYCIN 500 MG VIAL (RESTRICTED TO ID ONLY) ONE (07:06)
[2020-01-13] MEDS ORDERED: TRYPAN BLUE 0.5 ML DISP.SYRIN ONE (07:06)
[2020-01-13] MEDS ORDERED: EPINEPHrine/PF 1 MG/1 ML (1:1,000) AMPULE ONE (07:06)
[2020-01-13] MEDS ORDERED: LIDOCAINE HCL/PF 1% SDV 5ML VIAL ONE (07:06)
[2020-01-13] MEDS ORDERED: TETRACAINE 0.5% OPHTH SOLN 2 ML BOTTLE ONE (07:07)
[2020-01-13] MEDS ORDERED: ACETYLCHOLINE 1:100 INTRA-OCUL 20 MG/2 ML KIT ONE (07:07)
[2020-01-13] MEDS ORDERED: POVIDONE-IODINE 5% OPHTHALMIC PREP 30 ML SOLUTION ONE (07:07)
[2020-01-13] MEDS ORDERED: WATER FOR INJ,STERILE 10 ML ONE (07:07)
[2020-01-13] MEDS ORDERED: LIDOCAINE HCL/PF 2% SDV 5ML VIAL ONE ×2 (07:24→08:25)
[2020-01-13] MEDS ORDERED: BUPIVACAINE HCL/PF 0.75% 10 ML VIAL ONE (07:24)
[2020-01-13] MEDS ORDERED: PROPOFOL 20 ML ONE (08:25)
[2020-01-13] MEDS ORDERED: LIDOCAINE HCL/PF 2% SDV 5ML VIAL PNB ONE ×2 (08:39→08:45)
[2020-01-13] MEDS ORDERED: BUPIVACAINE HCL/PF 0.75% 10 ML VIAL RB ONE (08:39)
[2020-01-13] MEDS ORDERED: BUPIVACAINE HCL/PF 0.75% 10 ML VIAL PNB ONE (08:40)
[2020-01-13] MEDS ORDERED: LIDOCAINE HCL 1% PRESERVATIVE FREE - 30ML VIAL IO ONE (08:45)
[2020-01-13] MEDS ORDERED: CHONDROITIN SU A/HYALUR SOD 1 KIT IO ONE (08:46)
[2020-01-13] MEDS ORDERED: EPINEPHrine/PF 1 MG/1 ML (1:1,000) AMPULE SQ ONE (08:52)
[2020-01-13] MEDS ORDERED: ACETAMINOPHEN 325 MG TABLET (FP) ONE (09:25)
[2020-01-13 09:34] VITALS: PULSE 55; TEMP 97.7
[2020-01-13 10:32] VITALS: BP 150/77
--- NOTE | 2020-01-13 15:35 | SPEC ---
DATE OF OPERATION: 01/13/2020 OPERATION: Phacoemulsification of cataract with posterior chamber intraocular lens implantation, left eye, lens used [id number], 23.0 Diopter, Serial No. [id number]. PREOPERATIVE DIAGNOSIS: Cataract left eye. POSTOPERATIVE DIAGNOSIS: Cataract left eye. SURGEON: Effie Hoover M.D. ANESTHESIA: Peribulbar/Modified Van Lint/MAC. COMPLICATIONS: None. PROCEDURE: The patient was brought to the operating room and correctly identified along with the operative site and a correct intraocular lens pollard. The patient was then given a peribulbar block under sedation with 5 mL of a 1:1 mixture of 2% Lidocaine and 0.5% Bupivacaine. Two to 3 mL of the same mixture was given as a modified Van Lint block. The eye was then prepped and draped in the usual sterile fashion including 5% Betadine solution in the conjunctival sac and an eyelid drape. An eyelid speculum was then placed into the eye. A paracentesis port was created. Viscoelastic was injected to inflate the anterior chamber. A temporal clear corneal wound was created. A continuous circular capsulorrhexis was performed. The nucleus was then hydro-dissected and removed phacoemulsification via the [id number] approach. The remaining cortical material was irrigated and aspirated from the eye. Viscoelastic was injected to inflate the capsular bag. The lens was injected into the capsular bag. Viscoelastic was then irrigated and aspirated from the eye. The intraocular lens was noted to be well centered and covered by the anterior capsular border. All wounds were found to be watertight. Topical Vancomycin was given. The eye patch and shield were placed. The patient was discharged from the operating room in stable condition. EFFIE HOOVER M.D. [id number]
== END 2020-01-13 09:55 | disposition home or self-care (01) ==
LOC: JASU-SURG 06:08
PROVIDERS: ATTEND Ophthalmology
PROC: 08RK3JZ Replacement of Left Lens with Synthetic Substitute, Percutaneous Approach (ICD-10-PCS; principal; 2020-01-13 08:00)
DX: H26.9 Unspecified cataract (principal); E11.9 Type 2 diabetes mellitus without complications; I10 Essential (primary) hypertension
CPT/HCPCS: 82962